=== PATIENT | female | born 1975 | race Hispanic/Latino ===

== ENCOUNTER → 2018-04-11 | Day surgery (SDC) | payer OTHER ==
[~2018-04-11] MED LIST: BIRTH CONTROL PO; HYOSCYAMINE SULFATE 0.5 MG/ML AMP ONE; MIDAZOLAM HCL 2 MG/2 ML VIAL ONE; PROPOFOL IV EMULSION 10 MG/ML 50 ML VIAL ONE; VIT D PO
--- NOTE | 2018-04-11 09:54 | Operative Report ---
DATE OF PROCEDURE: April 11, 2018 PROCEDURE PERFORMED: Colonoscopy with biopsies. REFERRING PHYSICIAN: Dr. Rito Houston INDICATIONS FOR COLONOSCOPY: Lower abdominal pain, history of bright red blood per rectum. MEDICATION: Patient was done under MAC. Please see anesthesiologist note. PROCEDURE IN DETAIL: With the patient in left lateral decubitus position, flexible fiberoptic Olympus colonoscope was inserted into the rectum with ease and advanced all the way to the cecum. It was then withdrawn slowly. Mucosa overlying the cecum, ascending colon, transverse colon, and descending colon and the sigmoid colon appeared to be grossly within normal limits. There were some patchy areas of erythema and moderate edema noted in the rectum and biopsies were obtained. The scope was then retroflexed into the distal rectum and small internal hemorrhoids were noted, none of which was actively bleeding. The scope was then straightened out. It was subsequently withdrawn. Patient tolerated the procedure well. IMPRESSION: 1. Proctitis, mild. 2. Internal hemorrhoids, none actively bleeding. PLAN: Follow up histology. Initiate high-fiber, low-fat diet. Start hydrocortisone suppository 25 mg b.i.d. times 10 days, then p.r.n., VSL#3 1 p.o. daily, and Bentyl 10 mg 1 p.o. t.i.d. Patient might benefit from a followup colonoscopy in 5 years. Job#: [id number] cc:RITO HOUSTON MD
== END | disposition home or self-care (01) ==
LOC: OR 07:28
PROVIDERS: ATTEND Internal Medicine Gastroenterology
DX: K62.89 Other specified diseases of anus and rectum (principal); K64.8 Other hemorrhoids; K59.00 Constipation, unspecified; R03.0 Elevated blood-pressure reading, without diagnosis of hypertension; F41.9 Anxiety disorder, unspecified
CPT/HCPCS: 45380; 81025; J1980; J2250

== ENCOUNTER → 2022-06-21 | Outpatient (CLI) | payer OTHER ==
[~2022-06-21] MED LIST changes: +ATORVASTATIN CA20 MG PO; +DICYCLOMINE HCL10 MG PO; -HYOSCYAMINE SULFATE 0.5 MG/ML AMP ONE; +IOPAMIDOL 370 MG/ML 100 ML INFUS..BTL INJ ONE; +METAMUCIL FIBE3.4 GM PO; -MIDAZOLAM HCL 2 MG/2 ML VIAL ONE; +PROBIOTIC PO; -PROPOFOL IV EMULSION 10 MG/ML 50 ML VIAL ONE
[2022-06-21 08:31] LABS: CREATININE, SERUM 0.63 mg/dL (0.57-1.11)
== END ==
LOC: CT 07:26
PROVIDERS: ATTEND Internal Medicine Gastroenterology
DX: K76.9 Liver disease, unspecified (principal)
CPT/HCPCS: 36415; 74170; 82565; 84520; Q9967

== ENCOUNTER → 2022-06-25 | Day surgery (SDC) | payer OTHER ==
[~2022-06-25] MED LIST changes: +DIATRIZOATE MEGL/DIATRIZOA SOD 120 ML BTL PO ONE; -IOPAMIDOL 370 MG/ML 100 ML INFUS..BTL INJ ONE; +LIDOCAINE HCL 2% LOCAL INJ 5 ML SDV VIAL INJ ONE; +PROPOFOL IV EMULSION 10 MG/ML 20 ML VIAL ONE
[2022-06-25 09:59] VITALS: BP 126/72
== END | disposition home or self-care (01) ==
LOC: OR 07:19
PROVIDERS: ATTEND Internal Medicine Gastroenterology
DX: K31.89 Other diseases of stomach and duodenum (principal); K29.70 Gastritis, unspecified, without bleeding; K22.5 Diverticulum of esophagus, acquired; R93.5 Abnormal findings on diagnostic imaging of other abdominal regions, including retroperitoneum; E78.5 Hyperlipidemia, unspecified; A04.9 Bacterial intestinal infection, unspecified; K59.00 Constipation, unspecified; K76.9 Liver disease, unspecified; R63.4 Abnormal weight loss; Z79.899 Other long term (current) drug therapy
CPT/HCPCS: 43239; 74246; J2001; J2704; Q9963